=== PATIENT | female | born 1975 | race Caucasian/White ===

== ENCOUNTER 2021-05-24 13:32 | Emergency (ER) | payer OTHER ==
[~2021-05-24 13:32] MED LIST: NORCO 7.5-3251 EACH PO
[2021-05-24 14:39] LABS: RED BLOOD COUNT 4.71 M/UL (4.00-5.10); WHITE BLOOD COUNT 13.1 K/UL (4.5-11.0)
[2021-05-24 15:00] LABS: BUN/CREATININE RATIO 18 (0-10)
[2021-05-24] MEDS ORDERED: TORADOL 10 MG T10 MG PO (17:07)
[2021-05-24] MEDS ORDERED: ZOFRAN ODT 4 MG4 MG SL (17:09)
== END 2021-05-24 17:42 | disposition home or self-care (01) ==
LOC: ER1 13:32
PROVIDERS: Emergency Medicine
DX: N13.2 Hydronephrosis with renal and ureteral calculous obstruction (principal); Z87.442 Personal history of urinary calculi; I10 Essential (primary) hypertension; F17.210 Nicotine dependence, cigarettes, uncomplicated; Z79.899 Other long term (current) drug therapy
CPT/HCPCS: 80053; 80307; 81001; 83690; 85025; 87086; 96374; 96375; 99284; J1885; J2405